=== PATIENT | female | born 1985 | race Caucasian/White ===

== ENCOUNTER 2016-10-04 16:17 | Outpatient (CLI) | payer SELFPAY | END 2016-10-04 16:18 | LOC: LABWO 16:17 | DX: Z02.89 Encounter for other administrative examinations (principal) ==

== ENCOUNTER 2016-10-10 16:06 | Outpatient (CLI) | payer SELFPAY | END 2016-10-10 16:07 | LOC: LABWO 16:06 | DX: Z02.1 Encounter for pre-employment examination (principal) ==

== ENCOUNTER 2016-10-29 13:02 | Outpatient (CLI) | payer SELFPAY | END 2016-10-29 14:17 | LOC: LAB 13:02 → LABWO 14:17 | DX: Z02.0 Encounter for examination for admission to educational institution (principal) ==

== ENCOUNTER 2016-11-11 08:26 | Outpatient (CLI) | payer SELFPAY | END 2016-11-11 08:27 | LOC: LABWO 08:26 | DX: Z02.83 Encounter for blood-alcohol and blood-drug test (principal) ==